=== PATIENT | female | born 1985 | race Caucasian/White ===

== ENCOUNTER 2019-04-14 12:35 | Emergency (ER) | payer SELFPAY ==
[2019-04-14 13:08] VITALS: TEMP 97.8; BMI 25.4
[2019-04-14] MEDS ORDERED: ACETAMINOPHEN 325 MG TABLET (FP) PO ONE (14:05)
--- NOTE | 2019-04-14 14:06 | PDOC ---
History of Present Illness - General Chief Complaint: Pain Stated Complaint: ABD PAIN Time Seen by Provider: 04/14/19 13:50 - History of Present Illness Initial Comments: Marilin Olivares is a 33yo otherwise healthy woman, actively trying to get , who presents with intermittent, cramping low abdominal and low back pains for 1-2 weeks. She reports a positive test at home today, but she was concerned that the cramping pain indicated a problem with the . She reports her LMP was on 03/14/19. She denies any other symptoms including vaginal bleeding, discharge, dysuria, urinary frequency, fever or chills. She is currently taking a vitamin but has not taken any pain medications as she was concerned about what was safe. Past History - Past Medical History Allergies/Adverse Reactions: Allergies Allergy/AdvReac Type Severity Reaction Status Date / Time No Known Allergies Allergy Verified 04/14/19 12:47 COPD: No - Suicide/Smoking/Psychosocial Hx Smoking History: Never smoked Review of Systems - Review of Systems Comments:: General: No fevers, no chills, no weight or appetite change, no malaise HEENT: No changes in vision, no changes in hearing, no congestion, no sore throat CV: No chest pain, no palpitations, no LE edema Pulm: No SOB, no cough, no wheezing GI: No nausea or vomiting, no change in bowel habits, no melena : No frequency, no urgency, no dysuria Musc: No back pain, no joint swelling, no recent injury Skin: No rash, no lesions, no erythema Endo: No excessive thirst, no heat/cold intolerance Heme: No unusual bruising or bleeding, no swollen glands Neuro: No syncope, no numbness/tingling, no focal weakness Vasc: No claudication Psych: No recent change in mood, no SI or HI *Physical Exam - Vital Signs Last Vital Signs Temp Pulse Resp BP Pulse Ox 97.8 F 133 H 18 126/72 100 04/14/19 12:44 04/14/19 12:44 04/14/19 12:44 04/14/19 12:44 04/14/19 12:44 - Physical Exam Comments: General: Comfortable, no acute distress HEENT: PERRL, EOMI, MMM, voice normal, normal neck ROM Cards: RRR, no murmur appreciated Pulm: Comfortable on room air, clear to auscultation bilaterally Abd: Soft, nontender, nondistended Ext: Atraumatic. No LE edema. ROM intact Vasc: Extremities WWP Skin: Normal color, no rashes or lesions Neuro: A&Ox3, CN grossly intact, normal speech, motor/sensory grossly intact and symmetric Psych: Mood appropriate to situation Medical Decision Making - Medical Decision Making 04/14/19 14:05 Marilin Olivares is a 33yo otherwise healthy woman, recently positive test today, who presents with concerns about cramping abdominal and low back pain for 1-2 weeks. - Will confirm - UA to evaluate for sign of UTI - Otherwise benign exam 04/14/19 15:44 - test positive - UA negative for UTI - Reassured patient that cramps and intermittent pain can be normal during . Advised her to continue vitamins, should establish care with an relief driller. Will d/c home with OB follow up Discussed with Dr Trotter. Nora Graham PGY2 *DC/Admit/Observation/Transfer Diagnosis at time of Disposition: Qualifiers: Weeks of gestation: less than 8 weeks Qualified Code(s): Z3A.01 - Less than 8 weeks gestation of - Discharge Dispostion Disposition: HOME Condition at time of disposition: Stable Decision to Admit order: No - Referrals Referrals: [facility] [Provider Group] Bharath Cornell MD [Staff Physician] - Phuong Solares MD [Staff Physician] - Yoselin Major DO [Staff Physician] - Lolly Turner MD [Staff Physician] - Pat Martinez MD [Staff Physician] - - Patient Instructions Printed Discharge Instructions: DI for -- Discomforts and Remedies Additional Instructions: Discharge Instructions: You were seen in the emergency department for abdominal and back pain in early . Your was confirmed in the ED. Cramping during early can be very common, as can nausea/vomiting and several other -related symptoms. Please see the attached information packet for common discomforts of . You may use acetaminophen 650-1000mg every 6-8 hours as needed for pain. DO NOT take ibuprofen as this can be very dangerous during . Continue to take your vitamins. You will need to establish care with an relief driller. You have been provided with several physicians to choose from as well as one of the nearby OB clinics. Please call to schedule your initial appointment within the next week. Instrucciones de descarga: Se lo atendi en el servicio de urgencias por dolor abdominal y de espalda al principio del embarazo. Benavides embarazo fue confirmado en el servicio de urgencias. Los clicos sofia el embarazo temprano pueden ser muy comunes, al igual que las nuseas / vmitos y varios otros sntomas relacionados con el embarazo. Por favor, consulte el paquete de informacin adjunto para las molestias comunes del embarazo. Puede usar acetaminofn 650-1000mg cada 6-8 horas segn sea necesario para el dolor. NO tome ibuprofeno ya que esto puede ser muy peligroso sofia el embarazo. Contina tomando tus vitaminas prenatales. Tendr que establecer atencin con un obstetra. Se le beck proporcionado varios mdicos para elegir, as gato reema de las clnicas OB cercanas. Por favor llame para programar benavides [place] inicial dentro de la prxima semana. Print Language: CZECH - Post Discharge Activity
[2019-04-14] MEDS ORDERED: ACETAMINOPHEN 325 MG TABLET (FP) ONE (14:32)
[2019-04-14 14:52] LABS: HCG,QUALITATIVE URINE Positive; PH,URINE 7.5 (5.0-8.0); URINE APPEARANCE CLEAR; URINE BILIRUBIN NEGATIVE (NEGATIVE); URINE COLOR YELLOW; URINE GLUCOSE (UA) NEGATIVE (NEGATIVE); URINE KETONE NEGATIVE (NEGATIVE); URINE LEUK ESTERASE NEGATIVE (NEGATIVE); URINE NITRITE NEGATIVE (NEGATIVE); URINE PROTEIN NEGATIVE (NEGATIVE); URINE UROBILINOGEN 0.2 mg/dL (0.2-1.0)
[2019-04-14 15:58] VITALS: BP 127/68; PULSE 85
--- NOTE | 2019-04-14 16:49 | PDOC ---
Documentation entered by Ann Hernandez SCRIBE, acting as scribe for Lizz Trotter MD. Lizz Trotter MD: This documentation has been prepared by the Mary lomas Mackenzie, SCRIBE, under my direction and personally reviewed by me in its entirety. I confirm that the documentation accurately reflects all work , treatment, procedures, and medical decision making performed by me. Attending Attestation - Resident Resident Name: Nora Graham - ED Attending Attestation I have performed the following: I have examined & evaluated the patient, The case was reviewed & discussed with the resident, I agree w/resident's findings & plan - HPI HPI: Patient is a 33 year old female actively trying to get (positive at home test) with no significant PMH who presents to the ER with intermittent abdominal cramping and back pain for 2 weeks. The patient denies chest pain, shortness of breath, headache and dizziness. Denies fever, chills, vomiting, diarrhea and constipation. Denies dysuria, frequency, urgency and hematuria. Allergies: NKDA 04/14/19 16:06
== END 2019-04-14 15:58 | disposition home or self-care (01) ==
LOC: JER 12:35
DX: Z3A.01 Less than 8 weeks gestation of pregnancy (principal)
CPT/HCPCS: 81003; 84703; 99283-25